=== PATIENT | male | born 1990 | race Caucasian/White ===

== ENCOUNTER 2018-04-23 16:55 | Emergency (ER) | payer OTHER | END 2018-04-23 19:27 | disposition other institution (70) | LOC: ED 16:55 | DX: Z02.89 Encounter for other administrative examinations (principal) ==

== ENCOUNTER 2018-04-23 16:55 | Emergency (ER) | payer SELFPAY ==
[~2018-04-23] VITALS: Ht 172.7 cm; Wt 77.1 kg
[2018-04-23 17:01] VITALS: Ht 172.7 cm; Wt 77.1 kg
[2018-04-23 19:26] VITALS: BP 142/92
== END 2018-04-23 19:27 | disposition other institution (70) ==
LOC: ED 16:55
DX: S46.911A Strain of unspecified muscle, fascia and tendon at shoulder and upper arm level, right arm, initial encounter (principal); X58.XXXA Exposure to other specified factors, initial encounter; Y93.89 Activity, other specified; Y92.89 Other specified places as the place of occurrence of the external cause; Y99.8 Other external cause status